=== PATIENT | female | born 1930 | race Caucasian/White ===

== ENCOUNTER 2016-08-13 12:44 | Emergency (ER) | payer OTHER ==
[2016-08-13 13:22] LABS: BASOPHILS 0.5 %; BASOPHILS ABSOLUTE 0.04 10/3/uL (0.0-0.16); EOSINOPHILS 1.7 %; EOSINOPHILS ABSOLUTE 0.14 10/3/uL (0.0-0.53); ER CBC TAT 0 Hrs 05 Mins; HEMATOCRIT 45.8 % (36.0-48.0); HEMOGLOBIN 15.2 g/dL (12.0-16.0); IMMATURE GRANULOCYTES 0.6 %; IMMATURE GRANULOCYTES ABSOLUTE 0.05 10/3/uL (0.0-0.11); LYMPHOCYTES 26.7 %; LYMPHOCYTES ABSOLUTE 2.23 10/3/uL (0.67-4.30); MEAN CORPUS HGB CONC 33.2 g/dL (32.0-36.0); MEAN CORPUSCULAR VOLUME 96.4 fL (80-100); MEAN PLATELET VOLUME 10.3 fL (9.2-13.0); MONOCYTES 6.8 %; MONOCYTES ABSOLUTE 0.57 10/3/uL (0.21-1.20); NEUTROPHILS 63.7 %; NEUTROPHILS ABSOLUTE 5.32 10/3/uL (2.02-8.40); PLATELET COUNT 316 10/3/uL (150-400); RBC DISTRIBUTION WIDTH 12.6 % (12.0-16.0); RED CELL COUNT 4.75 10/6/uL (4.0-5.6); WHITE BLOOD CELLS 8.4 10/3/uL (4.5-10.5)
[2016-08-13 13:23] LABS: MANUAL DIFF NO %
[2016-08-13 13:29] LABS: PARTIAL THROMBO TIME 31.8 SEC (22.5-37.2); PROTIME (NOT ORD) 13.5 SEC (12.0-14.5)
[2016-08-13 13:38] LABS: BUN (BLOOD UREA NITROGEN) 22 MG/DL (6-23); CALCIUM, SERUM 10.3 MG/DL (8.5-10.4); CHEST PAIN PROFILE TAT 0 Hrs 21 Mins; CHLORIDE, SERUM 104 MMOL/L (96-112); CO2 (CARBON DIOXIDE) 27 MMOL/L (24-34); CREATININE 1.46 MG/DL (0.55-1.02); GFR AFRICAN AMERICAN 38 ML/MIN (>=60); GFR NON AFRICAN AMERICAN 32 ML/MIN (>=60); POTASSIUM, SERUM 4.1 MMOL/L (3.5-5.3); SODIUM, SERUM 139 MMOL/L (135-148); TROPONIN I 0.03 NG/ML (<0.05)
[2016-08-13 13:39] LABS: D-DIMER QUANTITATIVE 1.45 ug/mLFEU (< 0.50); GLUCOSE, SERUM 142 MG/DL (60-99)
[2016-08-13] MEDS ORDERED: NORV5 PO (17:08)
[2016-08-13] MEDS ORDERED: HYZAAR 100/25 T1 TAB PO (17:09)
[2016-08-13] MEDS ORDERED: ZOCOR40 PO (17:09)
[2016-08-13] MEDS ORDERED: BETAMETHASONE TOP (17:09)
[2016-08-13] MEDS ORDERED: NEXIUM40 PO (17:10)
[2016-08-13] MEDS ORDERED: LOFIB160 PO (17:10)
[2016-08-13] MEDS ORDERED: ASAB PO (17:11)
[2016-08-13] MEDS ORDERED: FISH OIL PO (17:14)
[2016-08-13] MEDS ORDERED: REFRESH OPH (17:14)
[2016-08-29] MEDS ORDERED: NORCO1 TAB PO (14:53)
[2016-09-08] MEDS ORDERED: FISH-EPA1000 MG PO (11:48)
[2016-09-09] MEDS ORDERED: ATV.5 PO (10:38)
[2016-09-10] MEDS ORDERED: BETAMETHASONE VAL TOP (19:46)
[2016-09-10] MEDS ORDERED: [UNRECOGNIZED DRUG - OTHER] PO (19:48)
[2016-09-10] MEDS ORDERED: COENZYME Q10 PO (19:48)
== END 2016-08-13 19:46 | disposition home or self-care (01) ==
LOC: ER 12:44
PROVIDERS: Emergency Medicine
DX: R07.9 Chest pain, unspecified (principal); F32.9 Major depressive disorder, single episode, unspecified; R53.1 Weakness; I10 Essential (primary) hypertension; Z95.1 Presence of aortocoronary bypass graft; Z79.82 Long term (current) use of aspirin; Z79.899 Other long term (current) drug therapy
CPT/HCPCS: 71010; 71275; 80048; 83735; 83880; 84484; 85025; 85379; 85610; 85730; 93005; 99285; Q9967